=== PATIENT | female | born 1940 | race Caucasian/White ===

== ENCOUNTER 2018-05-06 16:00 | Inpatient (IN) | payer MEDICARE, MEDICAID ==
[2018-05-06] MEDS ORDERED: Morphine 4 MG/ML VIAL ONE (17:47)
--- NOTE | 2018-05-06 17:51 | RAD ---
Date of service: 05/06/2018 PROCEDURE: CHEST RADIOGRAPH, 1 VIEW HISTORY: SOB COMPARISON: 06/02/2014 FINDINGS: LUNGS: Pulmonary vascular congestion. PLEURA: Bilateral pleural effusions are present CARDIOVASCULAR: Cardiomegaly. OSSEOUS STRUCTURES: No significant abnormalities. VISUALIZED UPPER ABDOMEN: Normal. OTHER FINDINGS: None. IMPRESSION: Cardiomegaly/acute CHF. New findings compared to the prior study.
[2018-05-06 18:01] LABS: BASO # 0.1 K/uL (0.0-0.2); BASO % 0.9 % (0.0-2.0); EOS # 0.1 K/uL (0.0-0.7); EOS % 1.4 % (0.0-4.0); HEMOGLOBIN 9.9 g/dL (11.0-16.0); LYMPH # 1.6 K/uL (1.0-4.3); LYMPH % 19.6 % (20.0-40.0); MEAN CORPUSCULAR HEMOGLOBIN 21.3 pg (27.0-31.0); MEAN CORPUSCULAR HGB CONC 30.5 g/dL (33.0-37.0); MEAN PLATELET VOLUME 9.1 fL (7.2-11.7); MONO # 0.5 K/uL (0.0-0.8); NEUT % 72.1 % (50.0-75.0); RBC 4.66 Mil/uL (3.80-5.20); RED CELL DISTRIBUTION WIDTH 22.6 % (11.5-14.5); WHITE BLOOD COUNT 8.4 K/uL (4.8-10.8)
[2018-05-06 18:21] LABS: ALBUMIN 3.9 g/dL (3.5-5.0); BLOOD UREA NITROGEN 10 mg/dL (7-17); CALCIUM 9.2 mg/dl (8.6-10.4); GFR AFRICAN-AMERICAN > 60; GFR NON-AFRICAN AMERICAN > 60
[2018-05-06 18:22] LABS: ALT/SGPT 24 U/L (9-52); AST/SGOT 12 U/L (14-36)
[2018-05-06 18:32] LABS: B-TYPE NATRIURETIC PEPTIDE 1370 pg/mL (0-900)
--- NOTE | 2018-05-06 18:41 | C.PDOC ---
Time Seen by Provider: 05/06/18 16:56 Chief Complaint (Nursing): Shortness Of Breath History Per: Patient, Family Onset/Duration Of Symptoms: Days (few) Current Symptoms Are (Timing): Worse Severity: Severe Associated Symptoms: Leg/Calf Pain, Ankle/Leg Swelling Additional History Per: Prior Records Past Medical History Reviewed: Historical Data, Nursing Documentation, Vital Signs Vital Signs: Last Vital Signs Temp 98.5 F 05/06/18 16:25 Pulse 75 05/06/18 16:25 Resp 24 05/06/18 17:40 BP 121/70 05/06/18 16:25 Pulse Ox 93 L 05/06/18 16:25 - Medical History PMH: Arthritis, Atrial Fibrillation, Back Problems, CHF, Depression, Diabetes, HTN, Hypercholesterolemia, Kidney Stones, Peripheral Edema Surgical History: Appendectomy, Cholecystectomy - [facility] Procedures THORACENTESIS (05/18/14) Family History: States: Unknown Family Hx - Social History Hx Tobacco Use: No Hx Alcohol Use: No Hx Substance Use: No - Immunization History Hx Tetanus Toxoid Vaccination: No Hx Influenza Vaccination: No Hx Pneumococcal Vaccination: No Review Of Systems Except As Marked, All Systems Reviewed And Found Negative. Constitutional: Positive for: Malaise. Negative for: Fever Cardiovascular: Positive for: Edema. Negative for: Chest Pain Respiratory: Positive for: Shortness of Breath, SOB with Excertion. Negative for: Hemoptysis Gastrointestinal: Negative for: Vomiting, Abdominal Pain Musculoskeletal: Positive for: Other (Chronic right hip pain). Negative for: Neck Pain Neurological: Negative for: Weakness, Numbness Physical Exam - Physical Exam Appears: No Acute Distress, Chronically Ill Skin: Warm, Dry Head: Atraumatic, Normacephalic Eye(s): bilateral: PERRL, EOMI Neck: Normal ROM, Supple Cardiovascular: Rhythm Irregular Respiratory: No Accessory Muscle Use, Rales (at bases) Gastrointestinal/Abdominal: Soft, No Tenderness Extremity: Normal ROM, Pedal Edema Neurological/Psych: Oriented x3, Normal Motor, Normal Sensation ED Course And Treatment - Laboratory Results Result Diagrams: 05/06/18 17:58 05/06/18 17:58 Lab Interpretation: Abnormal Interpretation Of Abnormal: Elevated BNP ECG: Interpreted By Me, Viewed By Me ECG Rhythm: Atrial Fibrillation, Nonspecific Changes ECG Interpretation: No Changes From Prior Rate From EC O2 Sat by Pulse Oximetry: 93 Pulse Ox Interpretation: Abnormal Interpretation Of Abnormal: Hypoxia on RA - Radiology CXR: Viewed By Me, Read By Radiologist CXR Interpretation: Yes: Cardiomegaly, Other (CHF) Progress - Interventions Interventions:: Observation, Oxygen - Medications Administered Intravenous: Diuretic - Patient Status Patient status: Partially improved - Continuity of Care Discussed patient case with:: Patient, Family-HIPPA compliant, ED Nurse, PMD - Patient Plan Patient Plan: Admission, Telemetry Disposition Discussed With : Ever Rojas Comment: He accepted pt on his service. Doctor Will See Patient In The: Hospital Counseled Patient/Family Regarding: Studies Performed, Diagnosis - Disposition Disposition: HOSPITALIZED Disposition Time: 18:43 Condition: STABLE - Clinical Impression Clinical Impression: Acute exacerbation of CHF (congestive heart failure)
[2018-05-06] MEDS: Oxycodone/Acetaminophen 5/325 mg Tab PO SCH (22:01)
[2018-05-06 23:14] VITALS: BMI 62.1
[2018-05-07] MEDS: Oxycodone/Acetaminophen 5/325 mg Tab PO SCH ×4 (00:04→18:54)
[2018-05-07 01:24] LABS: CK-MB 0.38 ng/mL (0.0-3.38)
[2018-05-07 07:33] LABS: CK-MB 0.82 ng/mL (0.0-3.38)
[2018-05-07] MEDS: Metoprolol Succinate 50 mg XL Tab PO SCH (09:40)
[2018-05-07] MEDS: diltiaZEM 180 mg/24 Hours CD Cap PO SCH (09:40)
[2018-05-07] MEDS: Pantoprazole 40 mg EC Tab PO SCH (09:40)
--- NOTE | 2018-05-07 14:40 | CARD ---
APPROVED REPORT Date of service: 05/06/2018 EKG Measurement Heart [id number] <Conclusion> Atrial fibrillation Left axis deviation Right bundle branch block Inferior infarct, age undetermined T wave abnormality, consider lateral ischemia Abnormal ECG
--- NOTE | 2018-05-07 15:51 | CP.PCM.HP ---
Past Patient History - Past Medical History & Family History Past Medical History?: Yes - Past Social History Smoking Status: Never Smoked - CARDIAC Hx Atrial Fibrillation: Yes Hx Congestive Heart Failure: Yes Hx Hypercholesterolemia: Yes Hx Hypertension: Yes Hx Peripheral Edema: Yes - HEENT Hx Cataracts: Yes (approx 4 yrs ago) - RENAL Hx Kidney Stones: Yes - ENDOCRINE/METABOLIC Hx Diabetes Mellitus Type 2: Yes - HEMATOLOGICAL/ONCOLOGICAL Hx Blood Disorders: No - INTEGUMENTARY Hx Dermatological Problems: No - MUSCULOSKELETAL/RHEUMATOLOGICAL Hx Arthritis: Yes Hx Falls: No - GASTROINTESTINAL Hx Constipation: Yes Hx Nausea: Yes - GENITOURINARY/GYNECOLOGICAL Hx Urinary Tract Infection: Yes - PSYCHIATRIC Hx Depression: Yes Hx Substance Use: No - SURGICAL HISTORY Hx Appendectomy: Yes Hx Cholecystectomy: Yes - ANESTHESIA Hx Anesthesia: Yes Meds Allergies/Adverse Reactions: Allergies Allergy/AdvReac Type Severity Reaction Status Date / Time No Known Allergies Allergy Verified 05/06/18 16:45 Results - Vital Signs Recent Vital Signs: Last Vital Signs Temp 98.0 F 05/07/18 07:00 Pulse 85 05/07/18 14:17 Resp 18 05/07/18 07:00 BP 116/68 05/07/18 09:40 Pulse Ox 98 05/07/18 14:17 - Labs Result Diagrams: 05/06/18 17:58 05/06/18 17:58 Labs: Laboratory Results - last 24 hr 05/06/18 05/06/18 05/07/18 17:58 17:58 00:50 WBC 8.4 RBC 4.66 Hgb 9.9 L Hct 32.6 L MCV 70.0 L MCH 21.3 L MCHC 30.5 L RDW 22.6 H Plt Count 223 MPV 9.1 Neut % (Auto) 72.1 Lymph % (Auto) 19.6 L Iron % (Auto) 6.0 Eos % (Auto) 1.4 Baso % (Auto) 0.9 Neut # (Auto) 6.0 Lymph # (Auto) 1.6 Iron # (Auto) 0.5 Eos # (Auto) 0.1 Baso # (Auto) 0.1 Sodium 141 Potassium 4.0 Chloride 102 Carbon Dioxide 27 Anion Gap 15 BUN 10 Creatinine 0.6 L Est GFR ( Amer) > 60 Est GFR (Non-Af Amer) > 60 POC Glucose (mg/dL) Random Glucose 110 H Calcium 9.2 Total Bilirubin 0.6 AST 12 L ALT 24 Alkaline Phosphatase 102 Total Creatine Kinase 29 L CK-MB (Mass) 0.38 Troponin I < 0.0120 < 0.0120 NT-Pro-B Natriuret Pep 1370 H Total Protein 7.6 Albumin 3.9 Globulin 3.7 Albumin/Globulin Ratio 1.0 05/07/18 05/07/18 05/07/18 06:32 07:00 11:06 WBC RBC Hgb Hct MCV MCH MCHC RDW Plt Count MPV Neut % (Auto) Lymph % (Auto) Iron % (Auto) Eos % (Auto) Baso % (Auto) Neut # (Auto) Lymph # (Auto) Iron # (Auto) Eos # (Auto) Baso # (Auto) Sodium Potassium Chloride Carbon Dioxide Anion Gap BUN Creatinine Est GFR ( Amer) Est GFR (Non-Af Amer) POC Glucose (mg/dL) 117 H 118 H Random Glucose Calcium Total Bilirubin AST ALT Alkaline Phosphatase Total Creatine Kinase 52 CK-MB (Mass) 0.82 Troponin I < 0.0120 NT-Pro-B Natriuret Pep Total Protein Albumin Globulin Albumin/Globulin Ratio
--- NOTE | 2018-05-07 16:38 | CARD ---
APPROVED REPORT Date of service: 05/07/2018 EXAM: Two-dimensional and M-mode echocardiogram with Doppler and color Doppler. Other Information Quality : GoodRhythm : INDICATION Congestive Heart Failure RISK FACTORS Diabetes 2D DIMENSIONS IVSd0.7 (0.7-1.1cm)LVDd5.5 (3.9-5.9cm) LVOT Diameter2.1 (1.8-2.4cm)PWd0.9 (0.7-1.1cm) LVDs2.7 (2.5-4.0cm)FS (%) 50.9 % LVEF (%)65.0 (>50%) M-Mode DIMENSIONS Left Atrium (MM)4.07 (2.5-4.0cm)Aortic Root2.88 (2.2-3.7cm) Aortic Cusp Exc.0.95 (1.5-2.0cm) Aortic Valve AoV Peak Iqwgnmke588.0cm/sAoV VTI45.0cmAO Peak GR.17mmHg LVOT Peak Xjhscmcz78.3cm/sLVOT VTI18.81cmAO Mean GR.10mmHg KAI (VMAX)1.03dh5TPW (VTI)1.39cm2 Mitral Valve MV E Avkyvtxn483.5cm/sMV DECEL [id number] A Wzxbuujc84.5cm/s E/A ratio2.6 TDI E/Lateral E'0.0E/Medial E'0.0 Tricuspid Valve TR Peak Pcpxslfr806ay/sTR Peak Gr.66mmHg LEFT VENTRICLE The left ventricle is normal size. There is normal left ventricular wall thickness. The Ejection Fraction is 55-60%. There is a flattened septum consistent with right ventricle pressure overload. probably moderate degree of lv diastolic dysfunciton.dilated la,ra, pulmonary htn. RIGHT VENTRICLE The right ventricle is mildly dilated. The right ventricular systolic function is normal. ATRIA The left atrium is mildly dilated. The right atrium is mildly dilated. AORTIC VALVE The aortic valve is moderately to severely calcified.probably trileaflet. There is mild aortic regurgitation. There is mild valvular aortic stenosis. Calculated aortic valve area is 1.3 cm2 with maximum pressure gradient of 19 mmHg and mean pressure gradient of 11 mmHg. MITRAL VALVE The mitral valve is moderately thickened but opens well. Mitral annular calcification is moderate. Mitral regurgitation is mild to moderate. TRICUSPID VALVE The tricuspid valve is normal in structure. There is moderate tricuspid regurgitation. Right ventricular systolic pressure is estimated at 70 mmHg. There is severe pulmonary hypertension. PULMONIC VALVE The pulmonary valve is normal in structure. There is mild pulmonic valvular regurgitation. GREAT VESSELS The aortic root is normal size. The aortic root displays mild to moderate sclerocalcific changes of the aortic root. ivc appears mildly dilated,not measured. PERICARDIAL EFFUSION There is no pericardial effusion. <Conclusion> The left ventricle is normal size. The Ejection Fraction is 55-60%. There is a flattened septum consistent with right ventricle pressure overload. probably moderate degree of lv diastolic dysfunciton.dilated la,ra, pulmonary htn. The right ventricle is mildly dilated. The right ventricular systolic function is normal. The left atrium is mildly dilated. The right atrium is mildly dilated. The aortic valve is moderately to severely calcified.probably trileaflet. There is mild aortic regurgitation. There is mild valvular aortic stenosis. Calculated aortic valve area is 1.3 cm2 with maximum pressure gradient of 19 mmHg and mean pressure gradient of 11 mmHg. Mitral regurgitation is mild to moderate. The mitral valve is moderately thickened but opens well. Mitral annular calcification is moderate. There is moderate tricuspid regurgitation. Right ventricular systolic pressure is estimated at 70 mmHg. There is severe pulmonary hypertension. The aortic root is normal size. The aortic root displays mild to moderate sclerocalcific changes of the aortic root. ivc appears mildly dilated,not measured.
[2018-05-07] MEDS: (Novolog) Insulin Aspart, Recombinant 100 u/ml 10 ml vial SC SCH ×2 (16:55→21:39)
[2018-05-07] MEDS: Potassium Chloride 20 mEq ER Tab PO SCH (17:27)
--- NOTE | 2018-05-07 23:40 | CP.PCM.PN ---
Subjective - Date & Time of Evaluation Date of Evaluation: 05/07/18 Time of Evaluation: 19:35 - Subjective Subjective: Pt seen and examined, less edmea, being diuresed , less short of breath Objective - Vital Signs/Intake and Output Vital Signs (last 24 hours): Temp Pulse Resp BP Pulse Ox 98 F 74 20 108/65 95 05/07/18 16:06 05/07/18 16:06 05/07/18 16:06 05/07/18 16:06 05/07/18 16:06 - Medications Medications: Current Medications Dabigatran (Pradaxa) 150 mg PO BID [facility] Last Admin: 05/07/18 17:26 Dose: 150 mg Diltiazem HCl (Cardizem Cd) 180 mg PO DAILY [facility] Last Admin: 05/07/18 09:40 Dose: 180 mg Duloxetine HCl (Cymbalta) 30 mg PO DAILY [facility] Last Admin: 05/07/18 09:40 Dose: 30 mg Furosemide (Lasix) 40 mg IVP DAILY [facility] Last Admin: 05/07/18 09:40 Dose: 40 mg Insulin Aspart (Novolog) 0 unit SC [facility] PRN Reason: Protocol Last Admin: 05/07/18 21:39 Dose: Not Given Metformin HCl (Glucophage) 850 mg PO BID [facility] Last Admin: 05/07/18 17:27 Dose: 850 mg Metoprolol Succinate (Toprol Xl) 50 mg PO DAILY [facility] Last Admin: 05/07/18 09:40 Dose: 50 mg Oxycodone/Acetaminophen (Percocet 5/325 Mg Tab) 1 tab PO Q6H [facility] Stop: 05/09/18 18:46 Last Admin: 05/07/18 18:54 Dose: 1 tab Pantoprazole Sodium (Protonix Ec Tab) 40 mg PO DAILY [facility] Last Admin: 05/07/18 09:40 Dose: 40 mg Pneumococcal Polyvalent Vaccine (Pneumovax 23 Vaccine) 0.5 ml IM .ONCE ONE Stop: 05/09/18 14:01 Potassium Chloride (K-Dur 20 Meq Er Tab) 20 meq PO DAILY [facility] Last Admin: 05/07/18 17:27 Dose: 20 meq Rosuvastatin Calcium (Crestor) 10 mg PO HS [facility] Last Admin: 05/07/18 21:41 Dose: 10 mg - Labs Labs: 05/06/18 17:58 05/06/18 17:58 - Constitutional Appears: No Acute Distress - Head Exam Head Exam: ATRAUMATIC, NORMAL INSPECTION, NORMOCEPHALIC - Eye Exam Eye Exam: EOMI, Normal appearance, PERRL Pupil Exam: NORMAL ACCOMODATION, PERRL - Respiratory Exam Respiratory Exam: Decreased Breath Sounds, Rales, Rhonchi - Cardiovascular Exam Cardiovascular Exam: REGULAR RHYTHM, +S1, +S2. absent: Murmur - GI/Abdominal Exam GI & Abdominal Exam: Soft, Normal Bowel Sounds. absent: Tenderness Assessment and Plan (1) Acute exacerbation of CHF (congestive heart failure) Status: Acute (2) Chronic congestive heart failure Status: Acute (3) Diabetes mellitus Status: Acute (4) Nausea Status: Acute (5) Vomiting Status: Acute
[2018-05-08] MEDS: Oxycodone/Acetaminophen 5/325 mg Tab PO SCH ×4 (00:03→18:09)
--- NOTE | 2018-05-08 04:17 | CON ---
Copied To: Cruz Jay MD Attending MD: Cruz Jay MD DATE: 05/07/2018 CARDIOLOGY CONSULTATION REASON FOR CONSULTATION: Shortness of breath. HISTORY OF PRESENT ILLNESS: The patient is a 78-year-old morbidly obese female who has a history of chronic atrial fibrillation, history of hypertension, diabetes mellitus, history of chronic obstructive lung disease, presented because of worsening shortness of breath. The patient was evaluated by me four years ago. At that time, the patient was found to have left ventricular diastolic dysfunction and moderate pulmonary hypertension. The patient denies any history of chest pain or coronary intervention in the past. SOCIAL HISTORY: The patient is a nonsmoker. MEDICATIONS: Cardizem CD 180 mg once a day, Crestor 10 mg once a day, Cymbalta 30 mg once a day, Glucophage 850 mg twice a day, Lasix 40 mg intravenously daily, Pradaxa 150 mg twice a day, Toprol-XL 50 mg once a day, and Protonix 40 mg p.o. once a day. REVIEW OF SYSTEMS: No fever or chills. No nausea or vomiting. No productive cough. PHYSICAL EXAMINATION: GENERAL: The patient is an elderly female who does not appear to be in acute distress. VITAL SIGNS: Blood pressure 108/65, heart rate 74, temperature 98, and respirations 20. HEENT: Pale conjunctivae. CHEST: Bilateral rhonchi. HEART: S1, S2 are regular. ABDOMEN: Soft. EXTREMITIES: 2+ pitting edema with significant chronic lower extremity skin changes. LABORATORY DATA: SMA-7: Sodium 141, potassium 4, chloride 102, CO2 of 27, glucose 110, BUN 10, creatinine 0.6. Three sets of troponins are negative. ProBNP is 1370. Today's INR is 1.4, PTT is 35. Hemoglobin and hematocrit on admission 9.9 and 32.6. White count and platelet count are within normal limit. Chest x-ray revealed cardiomegaly, bilateral lower lobe infiltrates, and [id number] CHF. I did review the echocardiographic study which revealed normal left ventricular systolic function, dilated and hypokinetic right ventricle with severe pulmonary hypertension. EKG revealed atrial fibrillation at the rate of 69, right bundle-branch block, inferior infarct of indeterminate age. ASSESSMENT: 1. Right-sided heart failure. 2. Diastolic left ventricular dysfunction. 3. Chronic obstructive lung disease and severe secondary pulmonary hypertension. 4. Morbid obesity. 5. Anemia. 6. Uncontrolled diabetes mellitus. 7. Chronic atrial fibrillation. RECOMMENDATIONS: Continue Cardizem CD at 180 mg once a day, Crestor at 10 mg once a day, Lasix 40 mg intravenously daily, Pradaxa 150 mg once a day, Toprol-XL 50 mg once a day. Obtain TSH level. Cruz Jay MD
[2018-05-08] MEDS: (Novolog) Insulin Aspart, Recombinant 100 u/ml 10 ml vial SC SCH ×4 (08:19→21:17)
[2018-05-08 08:31] LABS: BASO % 0.6 % (0.0-2.0); EOS # 0.2 K/uL (0.0-0.7); EOS % 2.7 % (0.0-4.0); LYMPH # 1.3 K/uL (1.0-4.3); LYMPH % 19.6 % (20.0-40.0); MEAN CELL VOLUME 70.2 fL (81.0-99.0); MEAN CORPUSCULAR HEMOGLOBIN 21.7 pg (27.0-31.0); MEAN CORPUSCULAR HGB CONC 30.9 g/dL (33.0-37.0); MEAN PLATELET VOLUME 9.6 fL (7.2-11.7); MONO # 0.3 K/uL (0.0-0.8); NEUT # 4.9 K/uL (1.8-7.0); NEUT % 72.1 % (50.0-75.0); RBC 4.61 Mil/uL (3.80-5.20); RED CELL DISTRIBUTION WIDTH 22.7 % (11.5-14.5); WHITE BLOOD COUNT 6.9 K/uL (4.8-10.8)
[2018-05-08 08:45] LABS: BLOOD UREA NITROGEN 15 mg/dL (7-17); CALCIUM 8.7 mg/dl (8.6-10.4); GFR AFRICAN-AMERICAN > 60; GFR NON-AFRICAN AMERICAN > 60
[2018-05-08] MEDS: Pantoprazole 40 mg EC Tab PO SCH (09:44)
[2018-05-08] MEDS: Potassium Chloride 20 mEq ER Tab PO SCH (09:45)
[2018-05-08] MEDS: Metoprolol Succinate 50 mg XL Tab PO SCH (10:47)
[2018-05-08] MEDS: diltiaZEM 180 mg/24 Hours CD Cap PO SCH (10:47)
[2018-05-08] MEDS: Magnesium Sulfate 1 gm in D5W 1 GM/100 ML BAG IVPB SCH ×2 (14:09→14:57)
--- NOTE | 2018-05-08 18:57 | PN ---
Copied To: Cruz Jay MD Attending MD: Cruz Jay MD DATE: 05/08/2018 SUBJECTIVE: The patient is still short of breath. PHYSICAL EXAMINATION: VITAL SIGNS: Blood pressure 127/72, heart rate 79, temperature 98.3, respirations 20. HEENT: Pale conjunctivae. CHEST: Bilateral rhonchi. Diminished breath sounds over the bases. HEART: S1 and S2 regular. ABDOMEN: Soft. EXTREMITIES: 2+ pitting edema. LABORATORY DATA: Hemoglobin and hematocrit 10 and 32.3. White count and platelet count are within normal limit. Today's SMA-7, sodium 140, potassium 4.1, chloride 99, CO2 of 30, glucose 110, BUN 15, creatinine 0.6. Magnesium is 1.4. Echocardiographic study revealed ejection fraction, flattened septum, diastolic dysfunction, mild valvular aortic stenosis with mild aortic valve insufficiency, severe pulmonary hypertension. ASSESSMENT: 1. Diastolic left ventricular dysfunction. 2. Mild aortic stenosis and mild aortic insufficiency. 3. Severe secondary pulmonary hypertension. 4. Morbid obesity. 5. Anemia. 6. Chronic atrial fibrillation. RECOMMENDATIONS: Continue Cardizem at 180 mg p.o. once a day, Crestor 10 mg once a day, metformin 850 mg twice a day, K-Dur 20 milliequivalents once a day, Lasix 40 mg intravenously daily, Toprol XL at 50 mg once a day, Pradaxa 150 mg twice a day, and we will administer 2 g of magnesium sulfate replacement today. Cruz Jay MD
[2018-05-09] MEDS: Oxycodone/Acetaminophen 5/325 mg Tab PO SCH ×3 (00:20→17:58)
[2018-05-09] MEDS: (Novolog) Insulin Aspart, Recombinant 100 u/ml 10 ml vial SC SCH ×4 (07:18→21:14)
--- NOTE | 2018-05-09 09:01 | CP.PCM.PN ---
Subjective - Date & Time of Evaluation Date of Evaluation: 05/08/18 Time of Evaluation: 16:00 - Subjective Subjective: Pt was seen and examined during routine follow up today Objective - Vital Signs/Intake and Output Vital Signs (last 24 hours): Temp Pulse Resp BP Pulse Ox 98.0 F 80 18 139/70 98 05/09/18 07:00 05/09/18 07:38 05/09/18 07:00 05/09/18 07:00 05/09/18 07:00 Intake and Output: 05/09/18 05/09/18 06:59 18:59 Intake Total 500 Balance 500 - Medications Medications: Current Medications Dabigatran (Pradaxa) 150 mg PO BID [facility] Last Admin: 05/08/18 18:09 Dose: 150 mg Duloxetine HCl (Cymbalta) 30 mg PO DAILY [facility] Last Admin: 05/08/18 09:45 Dose: 30 mg Furosemide (Lasix) 40 mg IVP DAILY [facility] Last Admin: 05/08/18 09:45 Dose: 40 mg Insulin Aspart (Novolog) 0 unit SC ACHS [facility] PRN Reason: Protocol Last Admin: 05/09/18 07:18 Dose: Not Given Metformin HCl (Glucophage) 850 mg PO BID [facility] Last Admin: 05/08/18 18:09 Dose: 850 mg Oxycodone/Acetaminophen (Percocet 5/325 Mg Tab) 1 tab PO Q6H [facility] Stop: 05/09/18 18:46 Last Admin: 05/09/18 05:58 Dose: Not Given Pantoprazole Sodium (Protonix Ec Tab) 40 mg PO DAILY [facility] Last Admin: 05/08/18 09:44 Dose: 40 mg Pneumococcal Polyvalent Vaccine (Pneumovax 23 Vaccine) 0.5 ml IM .ONCE ONE Stop: 05/09/18 14:01 Potassium Chloride (K-Dur 20 Meq Er Tab) 20 meq PO DAILY [facility] Last Admin: 05/08/18 09:45 Dose: 20 meq Rosuvastatin Calcium (Crestor) 10 mg PO HS [facility] Last Admin: 05/08/18 21:16 Dose: 10 mg - Labs Labs: 05/08/18 08:19 05/08/18 08:19 Assessment and Plan (1) Acute exacerbation of CHF (congestive heart failure) Status: Acute (2) Chronic congestive heart failure Status: Acute (3) Diabetes mellitus Status: Acute (4) Nausea Status: Acute (5) Vomiting Status: Acute
[2018-05-09] MEDS: Pantoprazole 40 mg EC Tab PO SCH (10:21)
[2018-05-09] MEDS: Potassium Chloride 20 mEq ER Tab PO SCH (10:21)
[2018-05-09 10:57] LABS: ABG ALLEN TEST POS; ARTERIAL BLOOD GAS HCO3 27.7 mmol/L (21-28); ARTERIAL BLOOD GAS O2 SAT 91.6 % (95-98); ARTERIAL BLOOD GAS PCO2 43 mm/Hg (35-45); ARTERIAL BLOOD GAS PH 7.43 (7.35-7.45); ARTERIAL BLOOD GAS PO2 56 mm/Hg (80-100); ARTERIAL BLOOD GAS TCO2 29.8 mmol/L (22-28)
[2018-05-09 11:16] LABS: BASO # 0.1 K/uL (0.0-0.2); BASO % 0.9 % (0.0-2.0); EOS # 0.1 K/uL (0.0-0.7); LYMPH # 1.7 K/uL (1.0-4.3); LYMPH % 24.1 % (20.0-40.0); MEAN CELL VOLUME 69.6 fL (81.0-99.0); MEAN CORPUSCULAR HGB CONC 31.6 g/dL (33.0-37.0); MEAN PLATELET VOLUME 9.3 fL (7.2-11.7); MONO # 0.4 K/uL (0.0-0.8); MONO % 5.5 % (0.0-10.0); NEUT # 4.8 K/uL (1.8-7.0); NEUT % 67.5 % (50.0-75.0); RBC 4.56 Mil/uL (3.80-5.20); RED CELL DISTRIBUTION WIDTH 22.1 % (11.5-14.5); WHITE BLOOD COUNT 7.2 K/uL (4.8-10.8)
[2018-05-09 11:40] LABS: BLOOD UREA NITROGEN 18 mg/dL (7-17); CALCIUM 8.9 mg/dl (8.6-10.4); GFR AFRICAN-AMERICAN > 60; GFR NON-AFRICAN AMERICAN > 60
[2018-05-09] MEDS ORDERED: Pneumococcal 23-Valent Vaccine IM ONE (14:00)
--- NOTE | 2018-05-09 18:32 | PN ---
Copied To: Cruz Jay MD Attending MD: Cruz Jay MD DATE: 05/09/2018 SUBJECTIVE: The patient is comfortable on nasal O2. She denies retrosternal chest pain. PHYSICAL EXAMINATION: VITAL SIGNS: Blood pressure 115/52, heart rate 61, temperature 98, respirations 18. HEENT: Normocephalic. CHEST: Clear. HEART: S1 and S2 . EXTREMITIES: 1+ pitting edema. LABORATORY DATA: Today's hemoglobin and hematocrit 10 and 31.7. White count and platelet count are within normal limits. Today's SMA-7, sodium 137, potassium 3.8, chloride 94, CO2 of 30, glucose 115, BUN 18, creatinine 0.6. ASSESSMENT: 1. Chronic obstructive lung disease. 2. Severe secondary pulmonary hypertension. 3. Right-sided heart failure. 4. Morbid obesity. 5. Mild anemia. 6. Chronic atrial fibrillation. RECOMMENDATIONS: Continue Crestor 10 mg once a day, K-Dur 20 mEq once a day, Lasix 40 mg intravenously once a day, Pradaxa 150 mg twice a day. Plan is to discharge the patient once arrangements for home nasal O2 are made. Cruz Jay MD
--- NOTE | 2018-05-09 23:44 | CP.PCM.PN ---
Subjective - Date & Time of Evaluation Date of Evaluation: 05/09/18 Time of Evaluation: 19:00 - Subjective Subjective: Pt seen & examined, pt is hypooxemic with cor pulmonale, doing better, decreased edema, dec shortness of breath Objective - Vital Signs/Intake and Output Vital Signs (last 24 hours): Temp Pulse Resp BP Pulse Ox 97.9 F 87 20 131/72 96 05/09/18 15:57 05/09/18 22:01 05/09/18 15:57 05/09/18 15:57 05/09/18 15:57 Intake and Output: 05/09/18 05/10/18 18:59 06:59 Intake Total 600 Balance 600 - Medications Medications: Current Medications Dabigatran (Pradaxa) 150 mg PO BID [facility] Last Admin: 05/09/18 17:58 Dose: 150 mg Duloxetine HCl (Cymbalta) 30 mg PO DAILY [facility] Last Admin: 05/09/18 10:21 Dose: 30 mg Furosemide (Lasix) 40 mg IVP DAILY [facility] Last Admin: 05/09/18 11:58 Dose: 40 mg Insulin Aspart (Novolog) 0 unit SC ACHS [facility] PRN Reason: Protocol Last Admin: 05/09/18 21:14 Dose: Not Given Metformin HCl (Glucophage) 850 mg PO BID [facility] Last Admin: 05/09/18 17:58 Dose: 850 mg Pantoprazole Sodium (Protonix Ec Tab) 40 mg PO DAILY [facility] Last Admin: 05/09/18 10:21 Dose: 40 mg Potassium Chloride (K-Dur 20 Meq Er Tab) 20 meq PO DAILY [facility] Last Admin: 05/09/18 10:21 Dose: 20 meq Rosuvastatin Calcium (Crestor) 10 mg PO HS [facility] Last Admin: 05/09/18 21:30 Dose: 10 mg - Labs Labs: 05/09/18 11:03 05/09/18 11:03 - Constitutional Appears: No Acute Distress - Eye Exam Eye Exam: EOMI, Normal appearance, PERRL Pupil Exam: NORMAL ACCOMODATION, PERRL - Respiratory Exam Respiratory Exam: Decreased Breath Sounds, Rhonchi, Wheezes - Cardiovascular Exam Cardiovascular Exam: REGULAR RHYTHM, +S1, +S2. absent: Murmur - GI/Abdominal Exam GI & Abdominal Exam: Soft, Normal Bowel Sounds. absent: Tenderness - Rectal Exam Rectal Exam: Deferred Assessment and Plan (1) Acute exacerbation of CHF (congestive heart failure) Status: Acute (2) Chronic congestive heart failure Status: Acute (3) Diabetes mellitus Status: Acute (4) Nausea Status: Acute (5) Vomiting Status: Acute (6) Hypoxemia requiring supplemental oxygen Status: Acute (7) Cor pulmonale Status: Acute
[2018-05-10] MEDS: (Novolog) Insulin Aspart, Recombinant 100 u/ml 10 ml vial SC SCH ×3 (08:19→16:20)
[2018-05-10] MEDS: Potassium Chloride 20 mEq ER Tab PO SCH (10:28)
[2018-05-10] MEDS: Pantoprazole 40 mg EC Tab PO SCH (10:28)
--- NOTE | 2018-05-10 12:54 | CP.PCM.PN ---
Subjective - Date & Time of Evaluation Date of Evaluation: 05/10/18 Time of Evaluation: 12:54 - Subjective Subjective: PATIENT WAS ADMITTED FOR CHF EXACERBATION ON ROOM AIR SAT AT 95% AAOX3/ SITTING AT THE BEDSIDE / DENIES CHEST PAIN OR SOB Objective - Vital Signs/Intake and Output Vital Signs (last 24 hours): Temp Pulse Resp BP Pulse Ox 98 F 94 H 18 123/74 99 05/10/18 08:00 05/10/18 08:00 05/10/18 08:00 05/10/18 10:29 05/10/18 08:00 Intake and Output: 05/10/18 05/10/18 06:59 18:59 Intake Total 600 Balance 600 - Medications Medications: Current Medications Dabigatran (Pradaxa) 150 mg PO BID [facility] Last Admin: 05/10/18 10:29 Dose: 150 mg Duloxetine HCl (Cymbalta) 30 mg PO DAILY [facility] Last Admin: 05/10/18 10:29 Dose: 30 mg Furosemide (Lasix) 40 mg IVP DAILY [facility] Last Admin: 05/10/18 10:29 Dose: 40 mg Insulin Aspart (Novolog) 0 unit SC ACHS [facility] PRN Reason: Protocol Last Admin: 05/10/18 11:56 Dose: Not Given Metformin HCl (Glucophage) 850 mg PO BID [facility] Last Admin: 05/10/18 10:28 Dose: 850 mg Pantoprazole Sodium (Protonix Ec Tab) 40 mg PO DAILY [facility] Last Admin: 05/10/18 10:28 Dose: 40 mg Potassium Chloride (K-Dur 20 Meq Er Tab) 20 meq PO DAILY [facility] Last Admin: 05/10/18 10:28 Dose: 20 meq Rosuvastatin Calcium (Crestor) 10 mg PO HS [facility] Last Admin: 05/09/18 21:30 Dose: 10 mg - Labs Labs: 05/09/18 11:03 05/09/18 11:03 Assessment and Plan - Assessment and Plan (Free Text) Assessment: PAT[facility] ON LASIX ABG DONE PC02 IS 43 P02 IS 56 AND ROOM AIR PATIENT IS SAT AT 95% DISCUSS WITH DR RIVERS AND DR HARTMANN WHO CLEAR FOR DC FOLLOW UP WITH DR RIVERS AT HIS OFFICE NEXT WEEK ---CALL FOR APPOINTMENT FOLLOW UP WITH DR HARTMANN AT HIS OFFICE ---CALL FOR APPOINTMENT CONTINUE ALL HOME MEDICATION CARDIZEM DOSE CHANGE TO 120 MG FROM 180 MG PO DAILY STOP TAKING THE METOPROLOL ACTIVITY TOLERATED / HALF-WAY AND HOME PHYSICAL THERAPY ORDER CALL DR RIVERS OR GO TO THE EMERGENCY ROOM IF SYMPTOMS RETURN OR WORSENING DISCUSS WITH PATIENT WHO AGREE AND VERBALIZED UNDERSTANDING
[2018-05-10] MEDS ORDERED: diltiaZEM 120 mg/24 Hours CD Cap PO SCH (13:45)
[2018-05-10 15:56] VITALS: RESP 20; TEMP 98.3; O2SAT 95
[2018-05-10 16:19] VITALS: BP 124/77; PULSE 92
--- NOTE | 2018-05-10 18:40 | PN ---
Copied To: Cruz Jay MD Attending MD: Cruz Jay MD DATE: 05/10/2018 SUBJECTIVE: The patient is short of breath on minimal exertion and she is currently . PHYSICAL EXAMINATION: VITAL SIGNS: Blood pressure 127/69, heart rate 94, temperature 98, respirations 18. HEENT: Pale conjunctivae. CHEST: Minimal basal rhonchi. HEART: S1 and S2 regular. ABDOMEN: Soft. EXTREMITIES: 2+ pitting edema. LABORATORY DATA: Today's blood sugars 115 and 112. ASSESSMENT: 1. Chronic atrial fibrillation. 2. Chronic obstructive lung disease. 3. Morbid obesity. 4. Right-sided heart failure. RECOMMENDATIONS: Start Cardizem CD at 120 mg daily, continue Crestor 10 mg once a day, Glucophage 850 mg twice a day, K-Dur 20 mEq once a day, Lasix 40 mg intravenously once a day, Pradaxa mg twice a day. I think that the patient will not meet the criteria for home O2 and the plan is to discharge the patient home today. The patient refuses to go to subacute rehab. Cruz Jay MD
--- NOTE | 2018-05-11 01:08 | CP.PCM.DIS ---
Provider - Provider Date of Admission: 05/06/18 18:44 Attending physician: Ever Rojas MD Time Spent in preparation of Discharge (in minutes): 45 Diagnosis - Discharge Diagnosis (1) Acute exacerbation of CHF (congestive heart failure) Status: Acute (2) Chronic congestive heart failure Status: Acute (3) Diabetes mellitus Status: Acute (4) Nausea Status: Acute (5) Vomiting Status: Acute (6) Hypoxemia requiring supplemental oxygen Status: Acute (7) Cor pulmonale Status: Acute Hospital Course - Lab Results Lab Results: Most Recent Lab Values WBC 7.2 K/uL (4.8-10.8) 05/09/18 11:03 RBC 4.56 Mil/uL (3.80-5.20) 05/09/18 11:03 Hgb 10.0 g/dL (11.0-16.0) L 05/09/18 11:03 Hct 31.7 % (34.0-47.0) L 05/09/18 11:03 MCV 69.6 fL (81.0-99.0) L 05/09/18 11:03 MCH 22.0 pg (27.0-31.0) L 05/09/18 11:03 MCHC 31.6 g/dL (33.0-37.0) L 05/09/18 11:03 RDW 22.1 % (11.5-14.5) H 05/09/18 11:03 Plt Count 244 K/uL (130-400) 05/09/18 11:03 MPV 9.3 fL (7.2-11.7) 05/09/18 11:03 Neut % (Auto) 67.5 % (50.0-75.0) 05/09/18 11:03 Lymph % (Auto) 24.1 % (20.0-40.0) 05/09/18 11:03 Grimes % (Auto) 5.5 % (0.0-10.0) 05/09/18 11:03 Eos % (Auto) 2.0 % (0.0-4.0) 05/09/18 11:03 Baso % (Auto) 0.9 % (0.0-2.0) 05/09/18 11:03 Neut # (Auto) 4.8 K/uL (1.8-7.0) 05/09/18 11:03 Lymph # (Auto) 1.7 K/uL (1.0-4.3) 05/09/18 11:03 Grimes # (Auto) 0.4 K/uL (0.0-0.8) 05/09/18 11:03 Eos # (Auto) 0.1 K/uL (0.0-0.7) 05/09/18 11:03 Baso # (Auto) 0.1 K/uL (0.0-0.2) 05/09/18 11:03 Puncture Site Lr 05/09/18 10:53 pCO2 43 mm/Hg (35-45) 05/09/18 10:53 pO2 56 mm/Hg (80-100) L 05/09/18 10:53 HCO3 27.7 mmol/L (21-28) 05/09/18 10:53 ABG pH 7.43 (7.35-7.45) 05/09/18 10:53 ABG Total CO2 29.8 mmol/L (22-28) H 05/09/18 10:53 ABG O2 Saturation 91.6 % (95-98) L 05/09/18 10:53 ABG Base Excess 3.7 mmol/L (-2.0-3.0) H 05/09/18 10:53 ABG Hemoglobin 10.0 g/dL (11.7-17.4) L 05/09/18 10:53 ABG Carboxyhemoglobin 2.1 % (0.5-1.5) H 05/09/18 10:53 POC ABG HHb (Measured) 8.2 % (0.0-5.0) H 05/09/18 10:53 ABG Methemoglobin 0.4 % (0.0-3.0) 05/09/18 10:53 Rivera Test Pos 05/09/18 10:53 A-a O2 Difference 40.0 mm/Hg 05/09/18 10:53 Respiratory Index 0.7 05/09/18 10:53 Hgb O2 Saturation 89.3 % (95.0-98.0) L 05/09/18 10:53 FiO2 21.0 % 05/09/18 10:53 Sodium 137 mmol/L (132-148) 05/09/18 11:03 Potassium 3.8 mmol/L (3.6-5.2) 05/09/18 11:03 Chloride 94 mmol/L (98-107) L 05/09/18 11:03 Carbon Dioxide 30 mmol/L (22-30) 05/09/18 11:03 Anion Gap 16 (10-20) 05/09/18 11:03 BUN 18 mg/dL (7-17) H 05/09/18 11:03 Creatinine 0.6 mg/dL (0.7-1.2) L 05/09/18 11:03 Est GFR ( Amer) > 60 05/09/18 11:03 Est GFR (Non-Af Amer) > 60 05/09/18 11:03 POC Glucose (mg/dL) 116 mg/dL (65-110) H 05/10/18 16:12 Random Glucose 115 mg/dL (65-105) H 05/09/18 11:03 Calcium 8.9 mg/dl (8.6-10.4) 05/09/18 11:03 Magnesium 1.8 mg/dL (1.6-2.3) 05/09/18 11:03 Total Bilirubin 0.6 mg/dL (0.2-1.3) 05/06/18 17:58 AST 12 U/L (14-36) L 05/06/18 17:58 ALT 24 U/L (9-52) 05/06/18 17:58 Alkaline Phosphatase 102 U/L (38-126) 05/06/18 17:58 Total Creatine Kinase 52 U/L (30-135) 05/07/18 07:00 CK-MB (Mass) 0.82 ng/mL (0.0-3.38) 05/07/18 07:00 Troponin I < 0.0120 ng/mL (0.00-0.120) 05/07/18 07:00 NT-Pro-B Natriuret Pep 1370 pg/mL (0-900) H 05/06/18 17:58 Total Protein 7.6 g/dL (6.3-8.3) 05/06/18 17:58 Albumin 3.9 g/dL (3.5-5.0) 05/06/18 17:58 Globulin 3.7 gm/dL (2.2-3.9) 05/06/18 17:58 Albumin/Globulin Ratio 1.0 (1.0-2.1) 05/06/18 17:58 TSH 3rd Generation 2.27 mIU/L (0.46-4.68) 05/07/18 20:00 - Hospital Course Hospital Course: PATIENT SEEN AND EXAMINED AT THE BEDSIDE [facility] IMPROVE ON LASIX ABG DONE PC02 IS 43 P02 IS 56 AND ROOM AIR PATIENT IS SAT AT 95% DISCUSS WITH DR ROJAS AND DR JAY WHO CLEAR FOR DC FOLLOW UP WITH DR ROJAS AT HIS OFFICE NEXT WEEK ---CALL FOR APPOINTMENT FOLLOW UP WITH DR JAY AT HIS OFFICE ---CALL FOR APPOINTMENT CONTINUE ALL HOME MEDICATION CARDIZEM DOSE CHANGE TO 120 MG FROM 180 MG PO DAILY STOP TAKING THE METOPROLOL ACTIVITY TOLERATED / CHCF AND HOME PHYSICAL THERAPY ORDER CALL DR ROJAS OR GO TO THE EMERGENCY ROOM IF SYMPTOMS RETURN OR WORSENING DISCUSS WITH PATIENT WHO AGREE AND VERBALIZED UNDERSTANDING Discharge Exam - Head Exam Head Exam: ATRAUMATIC, NORMAL INSPECTION, NORMOCEPHALIC - Eye Exam Eye Exam: EOMI, Normal appearance, PERRL Pupil Exam: NORMAL ACCOMODATION, PERRL - ENT Exam ENT Exam: Mucous Membranes Moist - Respiratory Exam Respiratory Exam: Accessory Muscle Use, NORMAL BREATHING PATTERN - Cardiovascular Exam Cardiovascular Exam: +S1, +S2 - GI/Abdominal Exam GI & Abdominal Exam: Normal Bowel Sounds - Rectal Exam Rectal Exam: Deferred Discharge Plan - Discharge Medications Prescriptions: diltiaZEM CD [Cardizem CD] 120 mg PO DAILY 30 Days c24 - Follow Up Plan Condition: GOOD Disposition: HOME/ ROUTINE Instructions: Heart Healthy Diet, Heart Failure, Adult (DC), Oxygen Therapy, Adult (DC), Diltiazem, Heart Failure Exercise Guide Additional Instructions: FOLLOW UP WITH DR ROJAS AT HIS OFFICE NEXT WEEK ---CALL FOR APPOINTMENT FOLLOW UP WITH DR JAY AT HIS OFFICE ---CALL FOR APPOINTMENT CONTINUE ALL HOME MEDICATION CARDIZEM DOSE CHANGE TO 120 MG FROM 180 MG PO DAILY STOP TAKING THE METOPROLOL ACTIVITY TOLERATED / CHCF AND HOME PHYSICAL THERAPY ORDER CALL DR ROJAS OR GO TO THE EMERGENCY ROOM IF SYMPTOMS RETURN OR WORSENING SEGUIMIENTO CON DR ROJAS EN AVELAR OFICINA LA PRXIMA SEMANA --- [place] DE NOMBRAMIENT[place] SEGUIMIENTO CON EL DR. JAY EN AVELAR OFICINA --- CONVOCATORIA DE NOMBRAMIENTO CONTINE CON TODA LA MEDICACIN EN EL HOGAR CAMBIO DE DOSIS DE CARDIZEM A 120 MG DE 180 MG PO DIARIO JAIMEE DE TORIN EL METOPROLOL ACTIVIDAD TAHIRA ENFERMERA TOLERADA / HABILITADA Y ORDEN DE TERAPIA FSICA DOMICILIARIA LLAME AL DR. ROJAS O DIRJASE A LA GLADYS DE EMERGENCIAS SI LOS SNTOMAS DEVUELVAN O ESTN ACTUANDO Referrals: Cruz Jay MD [Staff Provider] - Ever Rojas MD [Staff Provider] -
--- NOTE | 2018-05-13 07:28 | IP.NPCORE ---
Heart Failure Core Measure - Heart Failure Ejection Fraction: 40 % or Greater KHUSHI Inhibitor Prescribed: No Contraindication/Reason for not providing: NOT INDICATED Beta-Sammi Prescribed: None Contraindication/Reason for not providing: ON CARDIZEM PER [employer]OR[employer] Angiotensin II Receptor Sammi Prescribed: No Contraindication/Reason for not providing: NOT INDICATED AnticoagulationTherapy for Atrial Fibrillation/Atrialflutter: No Contraindication/Reason for not providing: NO HX OF AFIB Aldosterone Antagonist Prescribed: No Contraindication/Reason for not providing: EF IS GREATER THAN 40 Hydralazine Nitrate Prescribed: No Contraindication/Reason for not providing: EF IS GREATER THAN 40 Implantable Cardioverter Defibrillator Therapy: No Contraindication/Reason for not providing: EF IS GREATER THAN 40 Cardiac Resynchronization Therapy Prescribed: No Contraindication/Reason for not providing: EF IS GREATER THAN 40 - Follow up Will be discharged to: Home Follow Up Date (must be within 7 days from discharge): 05/16/18 Follow Up Time: 09:00
== END 2018-05-10 18:04 | disposition home health service (06) | DRG 292 ==
LOC: C.ER 16:00 → C.9E 18:44 → C.5S 22:19
PROVIDERS: ADMIT Internal Medicine; ATTEND Internal Medicine
DX: I11.0 Hypertensive heart disease with heart failure (principal); Z68.44 Body mass index [BMI] 60.0-69.9, adult; I50.33 Acute on chronic diastolic (congestive) heart failure; E66.01 Morbid (severe) obesity due to excess calories; I48.2 Chronic atrial fibrillation; J44.9 Chronic obstructive pulmonary disease, unspecified; I27.23 Pulmonary hypertension due to lung diseases and hypoxia; E11.65 Type 2 diabetes mellitus with hyperglycemia; E78.00 Pure hypercholesterolemia, unspecified; D64.9 Anemia, unspecified; I35.2 Nonrheumatic aortic (valve) stenosis with insufficiency; Z87.442 Personal history of urinary calculi; R09.02 Hypoxemia; Z87.440 Personal history of urinary (tract) infections